=== PATIENT | male | born 1955 | race Caucasian/White ===

== ENCOUNTER 2017-02-03 08:00 | Inpatient (IN) | payer BC ==
[~2017-02-03] VITALS: Ht 175.3 cm; Wt 80.6 kg
--- NOTE | ~2017-02-03 | OR ---
PATIENT'S NAME: LIONEL COLORADO [facility] AGE: 62 Y [address] ROOM: [place] [address] LOCATION: [facility] ADMIT DATE: 02/18/2017 OR/Procedure Report DISCHARGE DATE: FAMILY PHYSICIAN: Isidoro Alicea PA-C ATTENDING PHYSICIAN: ELKE GARNICA SURGEON: Elke Garnica MD FIBERGLASS PRODUCT TESTER: 1. Beni Mcgrath CST/SHARON. 2. Elke Thomson. DATE OF PROCEDURE: 02/18/2017 PRE-OP DIAGNOSIS: Degenerative joint disease right knee. POST-OP DIAGNOSIS: Degenerative joint disease right knee. OPERATION: Right total knee arthroplasty with computer navigation. ANESTHESIA: Spinal anesthesia plus adductor canal block plus periarticular local anesthesia (ropivacaine with epinephrine and Toradol). ESTIMATED BLOOD LOSS: Less than 10 mL. DRAIN: None. SPECIMEN: Synovial fluid for cell count, Gram-stain, and routine cultures. COMPLICATIONS: None. IMPLANT SYSTEM: Jessica Triathlon Size 6 right posterior stabilized femoral component Size 5 universal modular tibial baseplate 11 mm posterior stabilized size 5 X3 tibial polyethylene insert 35 mm Oval X3 patella component (triple pegged). INDICATIONS FOR SURGERY: The patient is a 62-year-old male who presents with advanced right knee degenerative joint disease and associated severely compromised activities of daily living. The patient has decided to proceed with knee replacement after having been thoroughly counseled regarding the associated risks, benefits, and limitations. We have specifically reviewed the risks and implications of infection, deep venous thrombosis, pulmonary embolism, mortality, neurovascular complications, blood transfusion (and associated potential for disease transmission or transfusion reaction), stiffness, instability, mechanical deterioration of the components (due to wear and or loosening), and the potential need for revision. We have also emphasized the importance of active involvement and compliance with post- operative physical therapy as a means of optimizing range of motion and PATIENT'S NAME: LEIGHLIONEL [facility] AGE: 62 Y [address] ROOM: [place] [address] LOCATION: [facility] ADMIT DATE: 02/18/2017 OR/Procedure Report DISCHARGE DATE: FAMILY PHYSICIAN: Isidoro Alicea PA-C ATTENDING PHYSICIAN: ELKE GARNICA functional recovery. Informed consent has been granted. DESCRIPTION OF PROCEDURE: The patient was positioned supine after administration of anesthesia and prophylactic antibiotics. A well-padded pneumatic tourniquet was placed around the right proximal thigh, and the right lower extremity was prepped and draped with vigilant sterile technique. The patient's name as well as the intended operative side and procedure were confirmed with a verbal time-out involving myself, the circulating nurse, the scrub nurse, and the anesthesiologist. Examination under anesthesia demonstrated no active skin lesions or masses. There was a large effusion. There was no erythema. There was no abnormal warmth. Range of motion under anesthesia was from a 5-degree flexion contracture to 115 degrees of flexion. There was no ligamentous insufficiency. The right lower extremity was elevated and exsanguinated with an Esmarch wrap, and the pneumatic tourniquet was inflated to 300mmHg. The knee was approached through a longitudinal midline incision. A medial parapatellar arthrotomy was performed and the patella was everted. Examination of the joint space demonstrated a large amount of orange-colored translucent slightly turbid synovial fluid. 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 Synovial fluid was sent for cell count, culture, and Gram-stain. The Gram-stain and cell count suggested no evidence of infection. An extensive synovectomy was performed. The cruciate ligaments were intact. There was full-thickness loss of articular cartilage involving 90% of the medial femoral condyle and 60% of the medial tibial plateau. In addition, there was a 1 cm wide transverse band of full-thickness articular cartilage loss extending all the way from the medial to the lateral margins of the patella. There was a 3 cm diameter region of high-grade partial thickness articular cartilage loss at the central aspect of the femoral trochlea. There was a moderate-sized osteophyte at the medial femoral condyle. There was a 1 x 2 cm region of full-thickness articular cartilage loss at the lateral tibial plateau. There was a 1 x 3 cm region of full-thickness articular cartilage loss at the medial margin of the lateral femoral condyle. Remnants of the menisci and cruciate ligaments were excised. The Dovetail navigation femoral tracker was pinned in place at the distal aspect of the femoral trochlea. Absence of motion between the femur and the tracking device was confirmed manually and visually. Femoral osseous landmarks were obtained in order to calibrate the computer navigation system. Landmarks included the center of rotation of the ipsilateral hip, the center-point of the distal femur, the femoral AP axis, 57 points on the medial femoral condyle PATIENT'S NAME: LIONEL COLORADO [facility] AGE: 62 Y [address] ROOM: [id number] [place], [place] [address] LOCATION: [facility] ADMIT DATE: 02/18/2017 OR/Procedure Report DISCHARGE DATE: FAMILY PHYSICIAN: Isidoro Alicea PA-C ATTENDING PHYSICIAN: ELKE GARNICA articular surface, and 57 points on the lateral femoral condyle articular surface. The VeriFone computer navigation system was subsequently utilized to position the distal femoral resection block such that the distal femoral resection was performed perfectly perpendicular to the femoral mechanical axis. The distal femoral resection was performed with a Book'n'Bloom Precision oscillating saw. The VeriFone computer navigation tibial tracker was pinned in place at the anterior aspect of the tibial plateau. Absence of motion between the tibia and the tracking device was confirmed manually and visually. Tibial osseous landmarks were obtained in order to calibrate the computer navigation system. Landmarks included the center-point of the tibial plateau, the AP tibial axis, 57 points on the medial tibial plateau articular surface, 57 points on the lateral tibial plateau articular surface, the medial malleolus, and the lateral malleolus. The VeriFone computer navigation system was subsequently utilized to position the proximal tibial resection block such that the proximal tibial resection was performed perfectly perpendicular to the tibial mechanical axis. The proximal tibial resection was performed with a Book'n'Bloom Precision oscillating saw. Perpendicularity of the tibial resection with respect to the tibial shaft axis was reconfirmed by inserting a spacer- block attached to an extramedullary guide amanda. External rotation of the anterior and posterior femoral resections was set parallel to the epicondylar axis and carefully adjusted in order to create a rectangular flexion gap. The box resection was performed with a reciprocating saw. Anterior and posterior chamfer resections were performed with the oscillating saw. Posterior condyle osteophytes were excised with an osteotome. All other osteophytes were excised with a rongeur. Resection of all remnants of the menisci was reconfirmed. Flexion and extension gaps were confirmed to be symmetric and well balanced with a spacer-block technique. The patella resection was performed with an oscillating saw such that the composite thickness of the reconstructed patella was equivalent to the thickness of the little shell tribe patella. Patella tracking was optimal and there was no need for a lateral retinacular release. All trial components were removed and all prepared osseous surfaces were thoroughly irrigated with pulsatile saline lavage and dried prior to cementing all three components in a single stage using Jessica Simplex cement containing pre-mixed tobramycin. All extruded excess cement was removed. The entire joint space was thoroughly inspected and thoroughly irrigated with bacteriostatic pulsatile saline lavage to assure that there was no residual debris of any sort. Final range of motion was from full extension (with no passive hyperextension) PATIENT'S NAME: LIONEL COLORADO [facility] AGE: 62 Y [address] ROOM: [place] [address] LOCATION: [facility] ADMIT DATE: 02/18/2017 OR/Procedure Report DISCHARGE DATE: FAMILY PHYSICIAN: Isidoro Alicea PA-C ATTENDING PHYSICIAN: ELKE GARNICA to 130 degrees of flexion. Patella tracking was reconfirmed to be optimal. There was excellent anteroposterior stability at 90 degrees of flexion. There was less than 1 mm of medial lift-off to valgus stress in full extension. There was less than 1 mm of lateral lift-off to varus stress in full extension. The arthrotomy was closed with multiple simple and [id number]-[id number] interrupted #1 Vicryl. Subcutaneous tissues were thoroughly re-irrigated with bacteriostatic pulsatile saline lavage. Subcutaneous tissues were re- approximated with simple buried interrupted #0 Vicryl sutures. The skin was closed with simple buried interrupted 2-0 Vicryl sutures followed by surgical cat. The dressing consisted of Xeroform gauze, 4x4 gauze, ABD pads and two 6-inch Pro Wraps. There were no intra-operative complications. MD ALECIA ROLLE/ricky /[id number] d: 02/18/172004 t: 02/19/172201, OPERATIVE SUMMARY
--- NOTE | ~2017-02-03 | DS ---
PATIENT'S NAME: LIONEL COLORADO [facility] AGE: 62 Y [address] ROOM: [address] [address] LOCATION: [facility] ADMIT DATE: 02/18/2017 Discharge Summary DISCHARGE DATE: 02/20/2017 FAMILY PHYSICIAN: Isidoro Alicea PA-C ATTENDING PHYSICIAN: Jag Iverson PRIMARY DIAGNOSIS: Degenerative joint disease of the right knee. SECONDARY DIAGNOSIS: Hypercholesterolemia. PROCEDURE PERFORMED: Right total knee arthroplasty with computer navigation. HISTORY: The patient is a 62-year-old male, who presents with advanced right knee degenerative joint disease and associated severely compromised activities of daily living. The patient has decided to proceed with total knee arthroplasty after having been thoroughly counseled regarding the risks, benefits, limitations and alternatives. Please refer to the outpatient clinic notes and admission history and physical for this patient. HOSPITAL COURSE: The patient underwent a right total knee arthroplasty on 02/18/2017 without complications. Spinal anesthesia plus adductor canal block plus periarticular local anesthesia was utilized. The patient received 24 hours of perioperative prophylactic antibiotics and remained hemodynamically stable, neurovascularly intact throughout the entire hospital course. The postoperative prophylactic deep venous thrombosis prophylaxis consisted of Xarelto 10 mg, early mobilization and pneumatic compression devices. Daily physical therapy for gait training, transfer training range of motion and quadriceps isometric exercises were received. The patient progressed well in physical therapy. On the date of discharge, 02/20/2017, the incision at the knee was healing well and showed no signs of infection. DISPOSITION: Home. DISCHARGE ACTIVITY: The patient is to bear weight as tolerated with range of motion and quadriceps isometric exercises as instructed. The operative extremity is to be elevated at least 90% of the day. There is to be sterile 4x4 gauze dressings to the incision daily. Dr. Iverson is to be notified immediately if there is any increased pain, fevers, chills erythema or drainage. DISCHARGE MEDICATIONS: 1. Xarelto 10 mg, take 1 tab p.o. daily for DVT prevention. 2. Dilaudid 2 mg, take 1 to 2 tablets p.o. every 4 hours as needed for pain. 3. Celebrex 200, take 1 tablet p.o. b.i.d. p.r.n. pain. PATIENT'S NAME: LIONEL COLORADO [facility] AGE: 62 Y [address] ROOM: [address] [address] LOCATION: G3 ADMIT DATE: 02/18/2017 Discharge Summary DISCHARGE DATE: 02/20/2017 FAMILY PHYSICIAN: Isidoro Alicea PA-C ATTENDING PHYSICIAN: Jag Iverson FOLLOWUP: Followup appointment is to be with Dr. Iverson on 02/25/2017 for initial postoperative evaluation and x-rays at that time. INDY NORTON FOR MD LYNNE ROLLE/modl /[id number] d: 03/04/17 0331 t: 03/11/17 0809, DISCHARGE SUMMARY
[2017-02-03] MEDS ORDERED: THERA-VITE W/ B1 TAB PO (08:12)
[2017-02-03] MEDS ORDERED: GLUCOSAMINE-CH1 EA37 PO (08:13)
[2017-02-03] MEDS ORDERED: MOBIC7.5 MG PO (08:13)
[2017-02-03] MEDS ORDERED: B COMPLEX1 EACH PO (08:13)
[2017-02-03] MEDS ORDERED: NAPROSYN500 MG PO (08:14)
[2017-02-03] MEDS ORDERED: PRILOSEC20 MG PO (08:14)
[2017-02-03] MEDS ORDERED: ADVIL200 MG PO (08:15)
[2017-02-03] MEDS ORDERED: PRAVACHOL40 MG PO (08:48)
[2017-02-18] MEDS ORDERED: 8 HOUR650 MG PO (08:57)
[2017-02-18 09:02] LABS: BILIRUBIN URINE NEGATIVE (NEGATIVE); BLOOD URINE 10 /UL (NEGATIVE); COLOR URINE YELLOW (YELLOW); GLUCOSE URINE NEGATIVE (NEGATIVE); KETONE URINE 5 mg/dL (NEGATIVE); LEUKOCYTES URINE NEGATIVE /UL (NEGATIVE); NITRITE URINE NEGATIVE (NEGATIVE); PROTEIN URINE 15 mg/dL (NEGATIVE); SPEC GRAVITY URINE 1.025 (1.003-1.035); TURBIDITY URINE CLEAR (CLEAR); UROBILINOGEN URINE NORMAL (NORMAL)
[2017-02-18 09:12] LABS: BACTERIA URINE NEGATIVE (NEGATIVE); EPITHELIAL URINE RARE #/HPF (NEGATIVE); RBC URINE NEGATIVE #/HPF (NEGATIVE); WBC URINE RARE #/HPF (NEGATIVE)
--- NOTE | 2017-02-18 17:18 | NUR ---
Significant Event: Patient arrived from surgery at 1545. Alert and oriented x3. Patient ate full supper at 1630. Patient numb from upper groin down due to spinal, states no pain. Follow up: 3rd Q30min post op vital at approximately 1805.
--- NOTE | 2017-02-19 05:18 | NUR ---
Significant Event: Alert/oriented x3. VSS. CSM WNL. Up in recliner since 2199. No sleep, said he felt ok. 3 voids - 1125 mls. Attempted BM in bathroom, none. Flatus. Dressing C/D/I. EZ wrap, leg on pillow. Next Ancef due 1200. Toradol at 0513; Dilaudid 2 mg po at 2027 and 304. 1 assist ambulation. Follow up:
--- NOTE | 2017-02-19 09:45 | NUR ---
Introduced self/role to patient. He lives alone in [place] but reports lots of helpful neighbors who would assist him if he needed something. He reports have all his needed DME. Did anticipate any barriers to discharge or at home, he plans to discharge tomorrow. Added my name to his marker board, will continue to follow. 0950 Lisa with [facility] called. Patient has inquired with them before surgery about possibly needing their services. I will follow up with patient tomorrow and get back with her. Will see how he does with therapies here and joint class.
--- NOTE | 2017-02-19 17:41 | NUR ---
Significant Event: Patient A/O x3, continent of bladder and bowels. Patient pain controlled with PRN toradol and dilaudid. Patient complaining of stomach pain and constipation, given an enema at approximately 1600. Small BM resulted. Patient states lessened abdominal discomfort after enema. One person assist with gait belt and walker. Patient has not slept since yesterday afternoon. Follow up: Monitor abdominal pain/constipation. Patient wishes to discontinue stool softeners because he believes they cause his stomach pain.
--- NOTE | 2017-02-20 03:36 | NUR ---
Significant Event: Alert/oriented x3. 1 assist ambulation. EZ warp in place, extremity elevated. Teds removed HS. Dilaudid 2 mg PO at 2239 and 0251. Had enema on day shift yesterday, BM after. Has mid abdominal pain since the BM, has gotten more tolerable, Dr Iverson aware. VSS. CSM WNL. Foot pumps on. Dressing C/D/I. Plans to go home today. Follow up:
--- NOTE | 2017-02-20 09:50 | NUR ---
Followed up with patient about HHC call I got yesterday. He said it was all set up. I explained my role in HHC arrangements. I asked what he wanted HHC for? He was sure other then therapies. I did explained that therapies often do start for at least a week. I will contact HHC and see what needs to be done. [address]verson. He didn't think HHC was needed but it the patient thought he had to have it, it would be fine but to have Salomon Kwok talk to patient. Talked to Salomon, he will talk to patient sometime after 1300. [address], [address] Mechanical Engineer, did some followup for me. Talked to Salomon, patient will not have HHC right now, will discuss at followup appointment. Marely called Tenisha [facility] to update.
--- NOTE | 2017-02-20 15:20 | NUR ---
I spoke with Salomon PUTNAM and pt will not have hhc yet and plans on getting it after he see's Dr Iverson at followup appointment. I did tell him then if he will still want it Dr Iverson's nurses will need to set it up then.
[2017-02-20] MEDS ORDERED: COLACE100 MG PO (16:42)
[2017-02-20] MEDS ORDERED: NEURONTIN300 MG PO (16:42)
[2017-02-20] MEDS ORDERED: XARELTO10 MG PO (16:44)
[2017-02-20] MEDS ORDERED: MIRALAX17 GM PO (16:44)
[2017-02-20] MEDS ORDERED: DILAUDID 2MG(HYD2 MG PO (16:45)
[2017-02-20] MEDS ORDERED: CELEBREX200 MG PO (16:49)
--- NOTE | 2017-02-20 17:28 | NUR ---
Discharge instructions reviewed with patient. Reviewed s/s infection, when to call the dr, care of dressings/incision, all medications, josue hose. all belongings sent with patient. Per his request his glasses, hearing aide, wallet and checkbook were placed in the blue bag. He had his phone in his hand. Also sent ez wrap ice home. Spent several minutes going over his insturctions and medications to ensure patient understood. He voiced understanding of all instructions. Encouraged patient to call dr with questions or concerns after discharge.
== END 2017-02-20 17:28 | disposition disaster alternative care site (69) | DRG 470 ==
LOC: G3N 02-18 08:12
PROVIDERS: ADMIT Orthopaedic Surgery
PROC: 8E0YXBZ Computer Assisted Procedure of Lower Extremity (ICD-10-PCS; principal; 2017-02-18)
PROC: 0SRC0J9 Replacement of Right Knee Joint with Synthetic Substitute, Cemented, Open Approach (ICD-10-PCS; principal; 2017-02-18)
DX: M17.11 Unilateral primary osteoarthritis, right knee (principal); E78.5 Hyperlipidemia, unspecified; G89.29 Other chronic pain; M54.9 Dorsalgia, unspecified; R10.9 Unspecified abdominal pain
CPT/HCPCS: C1713; C1776; J0690; J1100; J1170; J1885; J2001; J2250; J2405; J2795; J7120

== ENCOUNTER → 2017-02-06 | Outpatient (CLI) | payer BC ==
[~2017-02-06] MED LIST: 8 HOUR650 MG PO; ADVIL200 MG PO; B COMPLEX1 EACH PO; CELEBREX200 MG PO; COLACE100 MG PO; DILAUDID 2MG(HYD2 MG PO; GLUCOSAMINE-CH1 EA37 PO; MIRALAX17 GM PO; MOBIC7.5 MG PO; NAPROSYN500 MG PO; NEURONTIN300 MG PO; PRAVACHOL40 MG PO; PRILOSEC20 MG PO; THERA-VITE W/ B1 TAB PO; XARELTO10 MG PO
== END | disposition disaster alternative care site (69) ==
LOC: GNJRC 10:45
DX: Z01.812 Encounter for preprocedural laboratory examination (principal); M17.11 Unilateral primary osteoarthritis, right knee

== ENCOUNTER 2017-02-21 04:46 | Inpatient (IN) | payer BC ==
[~2017-02-21] VITALS: Ht 175.3 cm; Wt 84.2 kg
--- NOTE | ~2017-02-21 | HP ---
PATIENT'S NAME: LIONEL [facility] AGE: 62 Y [address] ROOM: [place] [address] LOCATION: [facility] ADMIT DATE: 02/21/2017 History & Physical DISCHARGE DATE: FAMILY PHYSICIAN: Isidoro Alicea PA-C ATTENDING PHYSICIAN: Pau SANDOVAL (Aaron) DATE OF SERVICE: 02/21/2017 CHIEF COMPLAINT: Abdominal pain. HISTORY OF PRESENT ILLNESS: As you all well know, Lionel is a very pleasant 62-year-old gentleman, who had right knee surgery earlier in the week. Postoperatively, he was having some issues with constipation and postoperative ileus and was discharged yesterday. His abdominal pain significantly worsened yesterday and came in from outside facility with complaints of abdominal pain. He was found to have peritonitis and free air under the diaphragm, and was sent here for further management. Here he just got 4 morphines. He is somewhat drowsy, but arousable and appropriate, and complains of severe abdominal pain. He says it started around Friday and has been getting worse ever since that time. It is 10/10 in intensity and stabbing in character. Movement and palpation causes aggravation and nothing alleviates the pain except for some pain meds that helps subside a bit. He has never had a pain of this type before. ALLERGIES: PLEASE SEE HOSPITAL LIST FOR COMPLETE LIST OF ALLERGIES, BUT TO THE BEST OF MY KNOWLEDGE, HE HAS NO KNOWN DRUG ALLERGIES. MEDICATIONS: Please see hospital list for complete list of medications. He tells me he is chronically on cholesterol-lowering medication. PAST MEDICAL HISTORY: Right total knee surgery, history of laparoscopic cholecystectomy, history of hiatal hernia, and history of hypercholesteremia. He denies any cardiac, pulmonary, hepatic, renal disease, or dysfunction. SOCIAL HISTORY: He is single. He is independent. The next of kin and the person who would be making medical decisions on his behalf would be his brother who lives in [place]. He denies tobacco use or abuse. He does drink about 2 to 4 drinks per day, but has not had anything since his surgery, never had withdrawal symptoms. PATIENT'S NAME: LIONEL [facility] AGE: 62 Y [address] ROOM: [place] [id number] LOCATION: [facility] ADMIT DATE: 02/21/2017 History & Physical DISCHARGE DATE: FAMILY PHYSICIAN: Isidoro Alicea PA-C ATTENDING PHYSICIAN: Pau SANDOVAL (Aaron) REVIEW OF SYSTEMS: A full 10-point review of system was discussed with the patient, was negative except for as discussed above. Specifically, he denies any chest pain, shortness of breath, or urinary symptoms. PHYSICAL EXAMINATION: GENERAL: A 62-year-old gentleman, somewhat drowsy but arousable. Alert and oriented x3. HEART: Tachy to 110 and regular. LUNGS: Breathing is nonlabored. ABDOMEN: Distended throughout. Tympanitic and tender to palpation throughout with involuntary guarding throughout, worse in the mid abdomen. No palpable hernias. EXTREMITIES: Bilateral lower extremities are warm. Brisk cap refill. No significant edema. No obvious calf tenderness or swelling. SKIN: No obvious skin lesions or rashes. Right knee incision is well healed. LABORATORY EVALUATION: White count was 19 and creatinine was up to 1.4. Radiology Evaluation: Plain films of the abdomen shows significant air underneath the right hemidiaphragm suggestive of pneumoperitoneum. ASSESSMENT AND PLAN: Lionel is a 62-year-old gentleman, after recent right total knee surgery, presenting with peritonitis and pneumoperitoneum. Differential diagnosis includes perforated ulcer versus a perforated tic versus some sort of perforation from an Isabela's or an ileus are less likely. We will get a CT scan to try to help us delineate where the sources and either way as he has significant peritonitis and hence pneumoperitoneum. We will proceed to the OR afterwards for diagnostic laparoscopy, possible bowel resection, possible Dionte patch repair, possible colostomy, and possible colon resection. I discussed the risks and benefits of this procedure with him. Discussed the significant risks associated including infection, bleeding, damage to surrounding structures, need for further procedures and surgeries, anastomotic leaks, and others. He understands the risks and benefits and wishes to proceed as above. He did tell me that his brother would be the one making medical decisions in the case he was unable to. He has already got a gram of Invanz at the outside hospital. We will go ahead given another liter of fluid, and he already got a single liter at the outside facility and proceed as above. PATIENT'S NAME: LIONEL [facility] AGE: 62 Y [address] ROOM: [place] [address] LOCATION: [facility] ADMIT DATE: 02/21/2017 History & Physical DISCHARGE DATE: FAMILY PHYSICIAN: Isidoro Alicea PA-C ATTENDING PHYSICIAN: Pau SANDOVAL) PAU SANDOVAL MD (JAKE) SL/modl /[id number] CC: Jag Iverson MD D: T: [id number] HISTORY & PHYSICAL
--- NOTE | ~2017-02-21 | OR ---
PATIENT'S NAME: LIONEL COLORADO [facility] AGE: 62 Y [address] ROOM: [id number] [place], [place] [address] LOCATION: [facility] [place] ADMIT DATE: 02/21/2017 OR/Procedure Report DISCHARGE DATE: FAMILY PHYSICIAN: Isidoro Alicea PA-C ATTENDING PHYSICIAN: Pau GONSALVES) SURGEON: Pau Gonsalves MD (Jake) THERMAL CUTTING TRACER MACHINE OPERATOR: DATE OF PROCEDURE: 02/21/2017 PREOPERATIVE DIAGNOSIS: Pneumoperitoneum, suspected perforated peptic ulcer. POSTOPERATIVE DIAGNOSIS: Pneumoperitoneum, was apparently a sealed diverticular perforation. PROCEDURE: Diagnostic laparoscopy. Laparoscopic diverting colostomy. ANESTHESIA: General endotracheal anesthesia. COMPLICATIONS: None. ESTIMATED BLOOD LOSS: 200 mL. DRAINS: 19-Kazakh round drain in the pelvis. INDICATION FOR PROCEDURE: A 62-year-old gentleman, is about five days postoperatively after a right total knee operation presents with a 2-day history of abdominal pain and pneumoperitoneum with CAT scan suspicious for upper GI source of the of the leak, presents for exploration. PQRI: 7 g of Invanz IV was given prior to surgery within the appropriate time frame for acute 24-hour medication. The patient continued to get postoperative antibiotics for the treatment of the peritoneal contamination. SCDs were placed on prior the case. Lovenox 30 mg subcu was given prior to the case. FINDINGS: The stomach, anterior and posterior of duodenal were carefully inspected. No abnormalities were noted. The small bowel was run from ligament of Treitz to ileocecal valve. It was noted to be grossly dilated throughout with a lot of fibrinous stranding on it, but no evidence of injury and was completely viable throughout. The rest of the intraabdominal colon was inspected and was normal, and the sigmoid colon was noted to be acutely inflamed and the small bowel was stuck at the sigmoid suggestive of a sigmoid diverticular perforation at this area, that portion the sigmoid was woody and inflamed. Once all the small bowel loops were taken down off the sigmoid was carefully inspected. No evidence of ongoing leak could be identified. PATIENT'S NAME: LIONEL COLORADO [facility] AGE: 62 Y [address] ROOM: [id number] [place], [place] [address] LOCATION: [facility] [place] ADMIT DATE: 02/21/2017 OR/Procedure Report DISCHARGE DATE: FAMILY PHYSICIAN: Isidoro Alicea PA-C ATTENDING PHYSICIAN: Pau GONSALVES (Aaron) Presumably this is self sealing leak, we considered just leaving drains behind but as the patient had significant generalized peritonitis, he had not managed appropriately, contained this on his own prior to needing surgical intervention. The fact that he has a total knee, we want to be complete and make sure that he does not have an ongoing leak with fecal contamination and minimize the likelihood of that knee getting infected and thus we performed a diverting colostomy. DETAILS OF PROCEDURE: After informed consent was obtained, the patient was brought to the operating room and placed in supine position. Left arm was tucked. All pressure points were padded. General endotracheal anesthesia was induced. A supraumbilical 5-mm incision was made after 0.25% Marcaine introduced into the wound. A 5-mm bladeless trocar introduced in the abdominal cavity under direct vision for the Optiview port by 5-mm 0-degree scope. Pneumoperitoneum was achieved. Abdominal cavity inspected. Additional left lateral and right lateral 5 mm trocars introduced in the same fashion as above under direct visualization from the laparoscope. The small bowel was noted to be dilated throughout. No evidence of succus entericus or feculent contamination could be identified throughout the abdominal cavity. We inspected the anterior wall of the stomach. The stomach was quite pliable and soft. NG tube is in place with the decompression. We inspected the entire anterior gastric wall, followed down to the duodenum. We were unable to see the duodenum clearly because of the scar tissue, the omentum to the old gallbladder fossa this was taken down with Bovie electrocautery. Hemostasis ensured while we exposed the duodenum and mobilized the duodenum out of the retroperitoneum laparoscopically, and duodenum was also soft and without any evidence of bilious staining or evidence of woody changes to the bowel suggestive of a perforation. We then opened up the lesser sac at the gastrocolic ligament taking great care not to injure the blood supply to the stomach and this wound was created and again no bowel staining or evidence of any kind of leak from the posterior gastric wall could be seen. The stomach appeared to be healthy. We then ran the small bowel from ligament of Treitz to ileocecal valve. By doing this, we realized that there was a portion of inflammation was on the left lower quadrant around the sigmoid and these loops of bowel were taken off the woody sigmoid loop. The entire small bowel was run from ligament Treitz to ileocecal valve with the exception of the fact that was stained with fibrinous debris on the on the bowel wall where it was attached to the sigmoid. We were unable to identify any other abnormality or injury to the small bowel. We inspected the rest intraabdominal colon. No abnormalities were noted. It was soft except for at the sigmoid were stuck up to the lateral and anterior abdominal wall into the start of small bowel. Prior to that loops being taken down. No obvious hole could be identified, but area of way changes to the colon was identified consistent with diverticulitis with perforation. Again, no feculent or purulent fluid could be seen but a lot of fibrinous debris. We mobilized the left colon and PATIENT'S NAME: LIONEL COLORADO [facility] AGE: 62 Y [address] ROOM: [place] [address] LOCATION: [facility] [place] ADMIT DATE: 02/21/2017 OR/Procedure Report DISCHARGE DATE: FAMILY PHYSICIAN: Isidoro Alicea PA-C ATTENDING PHYSICIAN: Pau GONSALVES (Aaron) sigmoid off from the lateral abdominal wall. We had made a decision to perform diversion because we did not want to take a chance that he could lose contain of this perforation within the setting of fresh knee. The patient already had been preoperatively marked for possible stoma and we had mobilized off the left lateral wall, we identified the ureter, 1 ampulla methylene blue IV was given. The urine turned green. No evidence of any chyle leak or injury to the ureter which was visualized throughout its entire course and no evidence of injury could be identified. We thought we had seen this sufficiently mobilized the left colon off a left lateral abdominal wall and taking down the white line of Toldt, but we were unable to much to deliver through the ostomy without transecting the colon. An echelon GI stapler was then fired across the distal colon and healthy-appearing bowel above where the a woody induration was, we did not attempt to resect the distal sigmoidectomy done that could be done at a later time, along with the reconnection. Once everything has cooled down with the transection of the colon, we were able to sufficiently mobilized the colon up to the anterior abdominal wall for temperature and proper ostomy. We did have to place a 12 mm infraumbilical and left lower quadrant 5-mm trocars to achieve this dissection. All the ostomy site was then opened with a circular disc of skin and fatty tissue was excised and a cruciate incision was made in the anterior rectus fascia. The muscle was split and a cruciate incision was made in the posterior fascia and the distal colon was then brought out through the ostomy defect taking great care to ensure the appropriate orientation of the bowel. The excess descending colon was resected and sent off as specimen. This was not the portion that was inflamed, that portion still remains intra-abdominally and will not be resected during this operation as we did not want to perform any undue dissection at this time. The 12 mm trocar site was closed with 0 Vicryl suture on a UR6 needle. All the wounds were closed with 4-0 Monocryl subcuticular suture. The drain was placed in the right lower quadrant drain site and placed in the pelvis next to the woody induration of the remaining sigmoid colon and secured to the skin with 3-0 nylon. Once all the wounds were closed, Dermabond was placed and sterile dressing was placed on that. We then matured the ostomy in the usual Eugenia fashion with interrupted 3-0 Vicryl sutures. An ostomy appliance was placed. I digitalized the stoma to make sure that was patent open throughout and below the fascia. The patient tolerated the procedure well and was extubated and taken back to Recovery in stable condition. MD PEDRO DIAZ (JAKE)/bebel PATIENT'S NAME: LIONEL COLORADO [facility] AGE: 62 Y [address] ROOM: [place] [address] LOCATION: [facility] [place] ADMIT DATE: 02/21/2017 OR/Procedure Report DISCHARGE DATE: FAMILY PHYSICIAN: Isidoro Alicea PA-C ATTENDING PHYSICIAN: Pau GONSALVES) /[id number] d: t: 02/21/171952, OPERATIVE SUMMARY
--- NOTE | ~2017-02-21 | CON ---
PATIENT'S NAME: LIONEL COLORADO [facility] AGE: 62 Y [address] ROOM: [place] [address] LOCATION: [facility] [place] ADMIT DATE: 02/21/2017 Consultation DISCHARGE DATE: FAMILY PHYSICIAN: Isidoro Alicea PA-C ATTENDING PHYSICIAN: Pau GONSALVES (Aaron) DATE OF CONSULTATION: 02/21/2017 ORTHOPEDIC CONSULTATION CHIEF COMPLAINT/REASON FOR CONSULTATION: Abdominal pain. HISTORY OF PRESENT ILLNESS: Mr. Colorado is a pleasant 62-year-old gentleman, known to my partner, Dr. Iverson, who recently underwent a right total knee arthroplasty on Friday02/18/2017. Yesterday, the patient developed acute abdominal pain. On postoperative day 1 after his surgery, he requested an enema. He was seen and evaluated by Dr. Gonsalves and re-admitted for acute peritonitis. The patient was brought to the operating room by Dr. Gonsalves and a diagnostic laparoscopy revealed evidence of a ruptured diverticula. A diverting colostomy was undertaken. I am seeing and evaluating the patient in PACU in the recovery room. The patient reports no pain in his knee. He reports mostly abdominal pain. REVIEW OF SYSTEMS: Otherwise as mentioned above. The rest were negative. ALLERGIES: NO KNOWN DRUG ALLERGIES. MEDICATIONS: Currently being reconciled. PAST MEDICAL HISTORY: Includes: 1. Right total knee arthroplasty on 02/18/2017. 2. Osteoarthritis. 3. History of gallstones. 4. Hernia. 5. Hypercholesterolemia. PAST SURGICAL HISTORY: Includes: 1. Right total knee arthroplasty by Dr. Iverson on 02/18/2017. PATIENT'S NAME: LIONEL COLORADO [facility] AGE: 62 Y [address] ROOM: [place] [address] LOCATION: [facility] [place] ADMIT DATE: 02/21/2017 Consultation DISCHARGE DATE: FAMILY PHYSICIAN: Isidoro Alicea PA-C ATTENDING PHYSICIAN: Pau GONSALVES) 2. Previous history of hernia repair. 3. Laparoscopic cholecystectomy. SOCIAL HISTORY: The patient is single and independent. He denies any tobacco or illicit drug use. He consumes alcohol socially. PHYSICAL EXAMINATION: VITAL SIGNS: Temperature 97.9, respirations 16, heart rate of 113, and blood pressure 147/91. GENERAL: In no acute distress. Awake, alert, and oriented x3. He is able to follow commands at the bedside. HEENT: Normocephalic and atraumatic. Extraocular movements are intact. PERRLA. Moist mucous membranes. Oropharyngeal airway is clear. NECK: Supple. Trachea is in midline. CARDIOVASCULAR: Regular rate and rhythm. CHEST: Normal symmetric respirations observed bilaterally. ABDOMEN: Soft, nontender, and nondistended. Currently, there is an ostomy in place. PELVIS: Stable. MUSCULOSKELETAL: Right lower extremity; focal examination of the patient's right lower extremity reveals it is grossly neurologically intact distally. Compartments of the thigh, leg, and foot are soft. There are palpable dorsalis pedal and posterior tibial pulses. There is a healing surgical incision over the anterior aspect of the knee with surgical cat in place. There is no erythema, warmth, or drainage. Small knee joint effusion noted. The patient is able to dorsiflex and plantarflex the ankle without difficulty. He has good strength at the ankle. He reports no pain at the knee. LABORATORY DATA: His white count was 19, and creatinine was up to 1.4. IMPRESSION: 1. Acute peritonitis in the setting of diverticulosis with ruptured diverticula warranting urgent laparoscopy and diverting colostomy. 2. Right total knee arthroplasty performed by Dr. Iverson on 02/18/2017. PLAN: I had a long discussion with Dr. Gonsalves regarding the patient. I also spoke to the patient in the PACU after his laparoscopy. The patient's knee appears to be comfortable. Dr. Gonsalves believe that he had achieved good intraoperative result after performing a laparoscopy and diverting colostomy. The patient will be on antibiotics for at least [address] Gonsalves suspects the patient may be in the hospital anywhere from 7 to 10 days. From an orthopedic standpoint, provided that Dr. Gonsalves is okay with the patient ambulating, I would recommend Physical Therapy and Occupational Therapy be consulted for early ambulation and prevention of deconditioning. The patient will be PATIENT'S NAME: LIONEL COLORADO [facility] AGE: 62 Y [address] ROOM: [place] [address] LOCATION: [facility] [place] ADMIT DATE: 02/21/2017 Consultation DISCHARGE DATE: FAMILY PHYSICIAN: Isidoro Alicea PA-C ATTENDING PHYSICIAN: Pau GONSALVES (Aaron) weightbearing as tolerated on the right lower extremity. We will keep his surgical incision clean, dry, and intact. I will continue to monitor the patient closely in the postoperative period. BETITO C MD JACK WALLACE/ricky /[id number] d: 02/21/172001 t: 02/22/17 1104, CONSULTATION REPORT
--- NOTE | ~2017-02-21 | DS ---
PATIENT'S NAME: LIONEL COLORADO [facility] AGE: 62 Y [address] ROOM: [address] [address] [place] [facility] [place]: 02/21/2017 Discharge Summary DISCHARGE DATE: 02/28/2017 FAMILY PHYSICIAN: Isidoro Alicea PA-C ATTENDING PHYSICIAN: Pau GONSALVES (Aaron) DIAGNOSES: 1. Pneumoperitoneum from an apparently sealed diverticular perforation. 2. Recent right knee replacement done February 18, 2017. 3. A 12-beat run of ventricular tachycardia. 4. Postoperative sinus tachycardia. SUMMARY: Lionel Colorado is a 62-year-old gentleman, who underwent a right total knee arthroplasty on February 18, [address]vers[address]. The patient was discharged home on February 21. The patient states that he has had abdominal pain prior to discharge, but no abnormalities were found. Upon arriving home, the patient developed severe abdominal pain and returned to the [facility] for evaluation. The patient was found to have pneumoperitoneum and was transferred to [facility] for further evaluation and treatment. The patient was evaluated by Dr. Gonsalves, the [facility] General Surgeon, who did obtain a CT scan, which actually showed changes suspicious for an upper GI source of the leak. Dr. Gonsalves recommended surgical exploration. He proceeded with diagnostic laparoscopy. He found an area of inflammatory change in the sigmoid colon and proceeded with a laparoscopic diverting colostomy. Please see his operative note for specifics. Postoperatively, an NG tube was placed to low continuous suction, Reese to dependent drainage. Pulmonary toiletry was encouraged. Lovenox was ordered for DVT prophylaxis. The patient continued on Invanz 1 g IV daily. Dilaudid JANITOR CLEANER was ordered with no basal rate and a 0.2 mg bolus every 10 minutes. On postop day 1, the patient was feeling much better. Vital signs were stable. He was afebrile. White blood cell count was normal. PT and OT were ordered for evaluation. On postop day two, a PICC line was ordered with anticipation of two weeks of IV antibiotics due to his recent total knee replacement along with the perforation of the colon. On postop day three, the patient had no flatus. He was voiding well. Vital signs were stable other than a heart rate of 116. White blood cell count is 5.2. Wound ostomy continence nurse was consulted for colostomy teaching. JANITOR CLEANER was discontinued and p.r.n. Dilaudid was ordered. The patient was placed on telemetry due to the tachycardia. NG output was 650 mL. On February 25, the colostomy was producing gas and stool. Vital signs again were stable. The patient's NG tube was clamped and removed later in the day. He was started on clear liquids. On postop day 5, the patient tolerated the clear liquids and was advanced to a full liquid diet. [place] and Tylenol were added for pain control. On the nerve specialist of postop day six, the patient had a 12-beat run of V-tach, but was asymptomatic. White blood cell count was 13.4, hemoglobin 10.0. Electrolytes were all stable. TSH was 1.750. Stool was PATIENT'S NAME: LIONEL COLORADO [facility] AGE: 62 Y [address] ROOM: [place] [address] [place] [facility] [place]: 02/21/2017 Discharge Summary DISCHARGE DATE: 02/28/2017 FAMILY PHYSICIAN: Isidoro Alicea PA-C ATTENDING PHYSICIAN: Pau GONSALVES (Aaron) checked for C. diff, which was negative. He was advanced to a surgical soft diet. Tentative arrangements have been made for the patient to discharge to the [facility] bed tomorrow. Discharge instructions include following up with both Dr. Cronin and Dr. Iverson in 3 weeks. We will try to coordinate those appointments if possible. He may continue on a regular diet. He is weightbearing as tolerated with TKA protocol, range of motion goal is 120 degrees, flexion in six weeks, postop range of motion and clot, ice those have been ordered. Continuous PT and OT. He may shower and allow the Steri-Strips to fall off the knee and the abdomen allow them to fall off. Continue with colostomy teaching. The PICC line may be discontinued after antibiotics are completed. DISCHARGE MEDICATIONS: Include: 1. Invanz 1 g IV daily and stopping on March 07, 2017. 2. Continue Prilosec 20 mg p.o. at bedtime. 3. Tylenol 650 mg p.o. every 4 hours as needed for pain. 4. Brownsville 5/325 1 to 2 tabs every 4 hours as needed for pain. 5. Multivitamin one tablet p.o. daily. 6. Glucosamine chondroitin 1 tablet p.o. daily. 7. B complex one tablet p.o. daily. 8. Pravachol 40 mg p.o. at bedtime. 9. Xarelto 10 mg p.o. daily x5 days for DVT prophylaxis. 10. Celebrex 200 mg p.o. twice daily, dispensing 14 with no refills. 11. A prescription was written for [place] 5/325 one to two p.o. q.4 hours p.r.n. pain dispensing 30 with no refills. Outpatient physical therapy order sheet has been written for once the patient is dismissed from the [facility] swing bed. Also, prescription for ostomy supplies has been written for. For specifics on day-to-day care, please refer to the hospital chart. RAIN PAREDES PA-C FOR MD SAMANTHA RALPH/ricky /[id number] d: 02/28/17 0442 t: 03/14/17 0609, DISCHARGE SUMMARY
--- NOTE | 2017-02-21 18:51 | NUR ---
AAOX3. Cooperative with cares. Hourly PO VS left to do on the hr starting @1900. Hypertensive, tachy - gave scheduled Metoprolol IV. Titrated to 1liter O2. NG to R) nare to LCS w/125 out. Reese draining green urine w/400ml out after returning from Sx. New Ostomy to LLQ pink w/scant serosanguinous out. Abdominal lap sites x4 glued. OSCAR to RLQ w/25ml of sanguinous output and dressing intact. Bilat PIVs w/LH s/l'd and RFA infusing @125/hr. CLAIMS ADJUSTER SUPERVISOR Dilaudid @0.2 demand only w/10min LO. R)knee replacement 02/18 (3 days ago). Stapled w/Mepilex and transparent on top; DO NOT TOUCH unless orders from Dr Iverson's office. Total knee replacement precautions and activity per 3N order set. VSS hypertensive and tachy. Gave scheduled Metoprolol IV; also received additional BP med orders. O2 titrated to 1liter. May give PRN PO BP med w/NG clamped for 1hr.
--- NOTE | 2017-02-22 04:57 | NUR ---
Pt. alert and oriented - at times groggy. 2L O2. PORCELAIN ENAMEL LABORER pump with 0.2mg deman, 10 min lockout, 4.8max. Pt. pushing button frequently. NG to continuous suction. OSCAR Drain to R) lower abdomen with 55mL. Lap site x4 with glue. Reese draining green urine. IV in L) Hand - saline locked. IV in R) Hand with fluids. IV Lopressor changed to every 4 hours instead of every 6 hours. New ostomy placed as well with drips of output. NPO with ice chips given by nurse. R) knee done 3 days ago with dressing on it. Order to have ice to R) knee. Knee precautions. IS teaching needs reinforced. Pleasant and cooperative with cares.
[2017-02-22 05:34] LABS: HEMATOCRIT 31.6 % (37.0-53.0); HEMOGLOBIN 9.9 g/dL (11.0-16.0); MCH 29.6 pg (27.0-34.0); MCHC 31.3 gm/dL (32.0-36.5); MCV 94.6 fl (83.0-98.0); MPV 9.2 fl (9.4-12.4); PLATELET COUNT 328 K/uL (150-450); RBC 3.34 M/uL (3.50-5.50); RDW-CV 13.1 % (11.9-14.6); WBC 5.4 K/uL (4.0-11.0)
[2017-02-22 05:50] LABS: ANION GAP 8.6 (10.0-19.0); BLOOD UREA NITROGEN 15 mg/dL (6-24); CALCIUM 8.3 mg/dL (8.5-10.5); CHLORIDE 106 mMol/L (96-110); CO2 30 mMol/L (22-32); CREATININE 1.1 mg/dL (0.6-1.3); ESTIMATED GFR (MDRD EQUATION) > 60; POTASSIUM 4.6 mMol/L (3.7-5.1); SODIUM 140 mMol/L (135-145)
[2017-02-22 06:28] LABS: ABSOLUTE NEUTROPHIL CT (ANC) 4.2 K/uL (1.4-9.0); BANDED NEUTROPHIL # 0.9 K/uL (0.0-0.1); BANDED NEUTROPHILS % 16 %; LYMPHOCYTE # 0.8 K/uL (0.8-4.0); LYMPHOCYTE % 14 %; MONOCYTE # 0.4 K/uL (0.0-1.0); SEGMENTED NEUTROPHIL # 3.4 K/uL (1.4-9.0); SEGMENTED NEUTROPHIL % 62 %
--- NOTE | 2017-02-22 17:48 | NUR ---
Patient is alert and oriented, tachycardic, takes lopressor IV q4 hours. On 1L O2 per NC. Dilaudid BOBBIN WASHER demand dose only at 0.2mcg with a 10 minute lockout. 4 lap sites with skin glue, ostomy has scant amount of fluid draining. OSCAR to RLQ had 30ml out. Reese is draining green urine. NG to R) nare had 210ml out. Education given about ice chips to output ratio. Had 19 deliveries with 23 demands of the BOBBIN WASHER. R) total knee done 3 days ago, mepilex dressing is CDI, ice applied to knee at all times, unless he can't sleep with it. NPO with ice chips. L) hand IV is saline locked, R) hand IV infusing fluids with BOBBIN WASHER. Is up in the chair, activity as tolerated, weight bearing as tolerated to R) leg.
[2017-02-23 06:04] LABS: BASOPHIL % 0.3 %; EOSINOPHIL # 0.2 K/uL (0.0-0.5); EOSINOPHIL % 3.4 %; HEMATOCRIT 29.5 % (37.0-53.0); HEMOGLOBIN 9.6 g/dL (11.0-16.0); IMMATURE GRANULOCYTE % 0.7 %; LYMPHOCYTE # 0.5 K/uL (0.8-4.0); MCH 30.2 pg (27.0-34.0); MCHC 32.5 gm/dL (32.0-36.5); MCV 92.8 fl (83.0-98.0); MPV 9.2 fl (9.4-12.4); NEUTROPHIL # (ANC) 4.1 K/uL (1.4-9.0); NEUTROPHIL % 69.6 %; NRBC % 0 /100WBC (0-0.00); PLATELET COUNT 349 K/uL (150-450); RBC 3.18 M/uL (3.50-5.50); WBC 5.9 K/uL (4.0-11.0)
[2017-02-23 06:14] LABS: BLOOD UREA NITROGEN 13 mg/dL (6-24); CALCIUM 8.2 mg/dL (8.5-10.5); CHLORIDE 100 mMol/L (96-110); CO2 27 mMol/L (22-32); CREATININE 0.7 mg/dL (0.6-1.3); ESTIMATED GFR (MDRD EQUATION) > 60; SODIUM 134 mMol/L (135-145)
--- NOTE | 2017-02-23 06:42 | NUR ---
Significant Event: A/O X3 AND COOPERATIVE WITH CARES. C/O ABDOMINAL PAIN RATING AT 4, ON DILAUDID PARTS FACILITATOR DEMAND ONLY. HAD TOTAL OF 5.35MG IN WITH 34 DEMANDS AND 26 GIVEN. LAP SITES X4 GLUED. COLOSTOMY HEALTHY, VERY SMALL AMOUNT OF LIQUID DRAINAGE; NO FLATUS OR STOOL YET. BOWEL SOUNDS RARE. NG TO R) NARE SKIN INTACT AND TO LOW CONTINUOUS SUCTION WITH 350ML OUT. NO NAUSEA NOTED. MAY HAVE ICE CHIPS, ENCOURAGED TO NOT OVER DO ICE CHIPS. OSCAR TO RLQ, HAD 20ML OUT. IV TO R) FA WITH IV FLUIDS INFUSING WITHOUT DIFFICULTY, SALINE LOCK TO L) HAND. KAMILLA DC'D AT 0620. RECENT R) TOTAL KNEE REPLACEMENT WITH MEPILEX DRESSING C/D/I. PATIENT VERY HARD TO GET COMFORTABLE IN CHAIR, MOVED TO RECLINER LATE IN SHIFT AND CURRENTLY RESTING. Follow up:
--- NOTE | 2017-02-23 17:13 | NUR ---
Patient is alert and oriented, VSS, on 1L O2 now, was on room air but will drop into the upper 80's when sleeping. Dilaudid TANKAGE SUPERVISOR is demand dose only at 0.2mcg with a 10 minute lockout. IV to L) hand is saline locked, R) forearm/hand infusing fluids at 100ml/hr. NG to R) nare had 450 out but he had about 300ml in of ice chips. OSCAR only had 10ml out and colostomy had 15ml out of fluid. Reese was pulled this am with 1375ml out for the day. Lopressor given scheduled Q4 hours for tachycardia. R) total knee was performed on the so patient has knee precautions, mepilex dressing is clean, dry and intact. 4 lap sites with skin glue. Education given again about ice chips and NG output.
[2017-02-24 06:07] LABS: HEMATOCRIT 31.5 % (37.0-53.0); HEMOGLOBIN 10.4 g/dL (11.0-16.0); MCH 30.2 pg (27.0-34.0); MCV 91.6 fl (83.0-98.0); MPV 8.9 fl (9.4-12.4); PLATELET COUNT 377 K/uL (150-450); RBC 3.44 M/uL (3.50-5.50); RDW-CV 12.8 % (11.9-14.6); WBC 5.2 K/uL (4.0-11.0)
[2017-02-24 06:22] LABS: ANION GAP 8.1 (10.0-19.0); BLOOD UREA NITROGEN 15 mg/dL (6-24); CALCIUM 8.7 mg/dL (8.5-10.5); CHLORIDE 97 mMol/L (96-110); CO2 30 mMol/L (22-32); ESTIMATED GFR (MDRD EQUATION) > 60; POTASSIUM 4.1 mMol/L (3.7-5.1); SODIUM 131 mMol/L (135-145)
[2017-02-24 06:43] LABS: ABSOLUTE NEUTROPHIL CT (ANC) 3.5 K/uL (1.4-9.0); BANDED NEUTROPHIL # 0.5 K/uL (0.0-0.1); BANDED NEUTROPHILS % 9 %; LYMPHOCYTE % 20 %; MONOCYTE # 0.5 K/uL (0.0-1.0); SEGMENTED NEUTROPHIL % 58 %
--- NOTE | 2017-02-24 06:55 | NUR ---
Significant Event: A/O X3 AND COOPERATIVE WITH CARES. C/O ABDOMINAL PAIN RATING AT 2-4, ON DILAUDID CAR DROPPER DEMAND ON WITH 3.6MG IN WITH 28 DEMANDS AND 18 DELIVERS. LAP SITES X4 ARE GLUED. COLOSTOMY HEALTHY WITH MINIMAL DRAINAGE OUTPUT. NO FLATUS. BOWEL SOUNDS ARE TYMPANIC THROUGHOUT. NG TO R) NARE HOOKED TO LOW CONTINUOUS SUCTION HAD 200ML OUT. OSCAR TO RLQ HAD 10ML SEROUS DRAINAGE. IV TO R) FA FLUSHES WELL AND IV FLUIDS INFUSING WITHOUT DIFFICULTY, SALINE LOCK TO L) HAND. CONTINUES TO BE ON 1L/NC TO KEEP SATS IN 90'S, DESATS OCCASIONALY. RECENT TOTAL KNEE REPLACEMENT TO R) KNEE, MEPLIEX DRESSING IN PLACE LEAVE IN PLACE, DO NOT REMOVE. MAY HAVE ICE TO KNEE BUT MAKE SURE THAT PATIENT DOES NOT FALL ASLEEP WITH ICE ON KNEE. SLEPT WELL WHEN FOUND COMFORTABLE POSITION FOR PATIENT. WILL GET PICC TODAY. Follow up:
--- NOTE | 2017-02-24 16:51 | NUR ---
Significant Event:A/O x 3, cooperative with cares. VSS. Pain rated between 3-7/10. Dilaudid MAINTENANCE MACHINIST DC'd, order now for IVP dilaudid q 1 hour. Has SL IV to R) forearm but PICC being placed for antibiotics. Stoma is beefy red, with bloody drainage. Lap sites x 4 glued and approximated. Mepilex dressing to R) knee, ecchymosis around dressing. UP with PT and ambulated in alejandro, but was very worn out this afternoon. IVP lopressor q 4 hours for increased heart rate. Telemetry. OSCAR to R) side draining serosanguinous dressing. 1 assist with walker/gait belt. Ice chips and otherwise NPO. Follow up: Continue to keep pain controlled and encourage ambulation.
--- NOTE | 2017-02-25 04:18 | NUR ---
Pt. alert and oriented. 1 assist with walker. VSS. IV loperessor q 4hours. HEAD BAKER dc'd. RA - sats good. Up in chair today. IV in R) arm - fluids running at 100ml/hour. PICC placed in R) upper arm. NG to R) nare with 250 output. NPO with ice chips. Replaced multiple bandaids for NG. OSCAR drain R) lower abdomen with 10ml output. Ostomy with 250ml and flatus this shift. Stoma is beefy red. R) knee with mepilex dressing from replacement. Drsg dry and intact. ordered ice every hour to knee. Lap sites x4 with glue. Last dilaudid given at 2300. Last zofran given at 2014. Telemetry - no calls. Pt. cooperative with cares.
[2017-02-25 05:18] LABS: ALBUMIN 2.3 gm/dL (3.5-5.0); ANION GAP 10.6 (10.0-19.0); BLOOD UREA NITROGEN 18 mg/dL (6-24); CALCIUM 8.3 mg/dL (8.5-10.5); CHLORIDE 97 mMol/L (96-110); CO2 29 mMol/L (22-32); ESTIMATED GFR (MDRD EQUATION) > 60; PHOSPHORUS 3.1 mg/dL (2.5-4.9); POTASSIUM 3.6 mMol/L (3.7-5.1); SODIUM 133 mMol/L (135-145)
--- NOTE | 2017-02-25 12:40 | NUR ---
Received consult to work on transfer to [facility] for or Friday with IV antibx. Called Marisela Hutchinson, PA and pt will need IV Invanz 1 gram once a day for total of 2 weeks, wrote order clarification. Talked with patient, lives in [place] and sees primary care provider in [place]. Asked if he wanted to go to [facility] and he said he would prefer [place] to be closer to home. Called and talked with Kristal, [facility] coordinator at [facility], faxed her referral information. She will see if she can get one of her docs to accept, sometimes don't like to if not a patient there, she will let me know.
--- NOTE | 2017-02-25 15:41 | NUR ---
Significant Event: Alert and oriented X 3. Room air. SBP 110's and 120's. HR 100's. No residual before pulling NG tube. NG from right nostril pulled at 1210. Clear liquid diet. Handling water and ice chips well. PICC to upper right arm flushes well with good blood return. Fluids infusing at 100 ml/hr. Peripheral IV to right forearm, flushes well, no blood return. Colostomy with 615 ml out this shift. OSCAR to abdomen with 30 ml out this shift, old shadow drainage on dressing. NG had a total of 145 ml out this shift. Up with 1 assist gait belt and walker. Right knee has mepilex dressing for a total knee. Ice to be replaced ever 2 hours. Dilaudid last given at 1152 for pain. Pleasant and cooperative with cares. Follow up:
--- NOTE | 2017-02-25 15:53 | NUR ---
Called pt insurance to check benefits for SNF. As long as local [employer] in network provider will require precertification but 30 days per calendar year are covered at 100% no deductible no copay no deductible no out of pocket and no lifetime max. DANA Roberts [facility] had called me also and left message to check how ostomy supplies are covered and it sounds like he has a good benefit too for those, she could not tell me specifically because you have to tell them the billing code (and I don't have billing codes) and some supplies are subject to precert, without knowing the billing code can't tell me if ostomy supplies require precert, but in general, as long as you are using an in network provider (local [employer] of [place] in network) supplies are also covered at 100% no deductible or copay or annual max. Called Alejandra back and let her know that, she will check and see if pt pharmacy is in network and tell patient.
--- NOTE | 2017-02-26 04:24 | NUR ---
Pt. alert and oriented. RA. VSS - tachy. IV lopressor every 4 hours. NG out yesterday - clear liquid diet. PICC to R) upper arm - fluids at 100ml/hour. IV R) Forearm - saline locked. Colostomy with 500ml output. OSCAR to R) lower abdomen with 50 ml. output. R) knee has mepilex dressing with ice every 1 hour. 1 assist with walker and gaitbelt. Did not given any PRN pain meds or nausea medication. Lap site x4 with glue. Pleasant and cooperative with all cares.
--- NOTE | 2017-02-26 12:56 | NUR ---
Talked with patient and let him know his insurance benefits in network for swingbed and for ostomy supplies. Alejandra with [facility] checking with pt pharmacy to see if they are in network as thats where he wants to get his supplies from. I called [facility] and talked with [place], she said they are in network with [facility] but for ostomy supplies they refer everyone to [facility] in [place]. Called [facility] in [place], , they are in network with [facility] and do order ostomy supplies for patients. Left message for Alejandra RN [facility] with that information. Let pt know I am working to see if pt can go to [facility], if for some reason they can't accept would look at [facility], he is okay with that. He says he has tried to get appt to see Dr Hernandez or Kel in [place] prior to his joint replacement surgery but couldn't get in for 3 months. Would like to change to physician in [place]. I called Kristal at [facility] and let her know that and that patient said he saw Dr Hernandez in the ER prior to coming back in here with [facility]. She will talk with Dr Hernandez and his partners to see if they can accept and let me know and then start precert with pt insurance, if they can accept. If they can't will start referral in [place].
--- NOTE | 2017-02-26 13:39 | NUR ---
Significant Event: Pt denies pain. PICC to left arm saline lock'd. Up in reclienr most of day, up with 1 assist. OSCAR to right lower abd draining mod amt of bloody drainage, incisions approximated with skin glue. Colostomy to left lower abd d/i, large amt of liquid sool this shift. Full liquids. Tele on, no calls. Follow up:
--- NOTE | 2017-02-26 16:03 | NUR ---
Received call back from Kristal at [facility]. Dr Begum will be accepting physician. They will work on precert for Friday for patient to come to them if ready for dc. She will let morning caregiver know tomorrow when precert complete. Talked with patient and let him know, and he is agreeable to plan. Told him to plan to have someone come get him Friday late morning or right after lunch. Told him will likely have to get supplies through [facility] in [place]. ANGELIQUE was checking on his pharmacy in [place] as well.
--- NOTE | 2017-02-26 16:05 | NUR ---
A - PT SCREENED D/T LOS. COLOSTOMY PLACED 02/21. NG DISCONTINUED 02/25. HT: 175.26 CM, WT: 185#, BMI: 27.3, IBW: 72.7 KG, %IBW: 116% LABS: NA 133, K+ 3.6, GLU 122, ALB 2.3. MEDS: ZOFRAN. DIET: WAS NPO/CLEAR LIQUID X3 DAYS. DIET ADVANCED TO FL TODAY, TOLERATING OKAY BUT SOME NAUSEA. EST NEEDS: 4027-8365 KCAL (25-30 KCAL/KG IBW), 73-88 GRAMS PROTEIN (1-1.2 GRAMS/KG IBW). D - INADEQUATE ORAL INTAKE RELATED TO ALTERED GI FUNCTION AND RECENT GI SURGERY EVIDENCED BY PO 25-75% X2 MEALS. I - PT AGREED TO TRY ENSURE ENLIVE BID. M/E - GOAL: PT WILL BE ABLE TO TOLERATE >50% OF MEALS AND AT LEAST ONE ORAL SUPPLEMENT PER DAY IN 3-5 DAYS.
--- NOTE | 2017-02-27 03:35 | NUR ---
Pt. alert and oriented. RA. VSS. IV lopressor dc'd. NO PRN pain meds given this shift. PICC to R) arm - saline locked. Up in chair then in bed and back in chair most of night. OSCAR to R) lower abd with 30ml output. R) mepilex dressing to knee with ice changed every hour per MD. 4 lap sites with glue. Ostomy to L) lower abd with green, liquid out. Full liquid diet. Tele - no calls. Staple removal kit at bedside for MD in AM. Cooperative and pleasant with all cares.
[2017-02-27 06:22] LABS: HEMATOCRIT 29.9 % (37.0-53.0); MCH 30.6 pg (27.0-34.0); MCHC 33.4 gm/dL (32.0-36.5); MCV 91.4 fl (83.0-98.0); MPV 9.3 fl (9.4-12.4); RBC 3.27 M/uL (3.50-5.50); RDW-CV 13.6 % (11.9-14.6); WBC 13.4 K/uL (4.0-11.0)
[2017-02-27 06:26] LABS: PLATELET COUNT 499 K/uL (150-450)
[2017-02-27 06:45] LABS: ALBUMIN 2.4 gm/dL (3.5-5.0); ANION GAP 8.7 (10.0-19.0); BLOOD UREA NITROGEN 18 mg/dL (6-24); CALCIUM 8.2 mg/dL (8.5-10.5); CHLORIDE 102 mMol/L (96-110); CO2 29 mMol/L (22-32); ESTIMATED GFR (MDRD EQUATION) > 60; PHOSPHORUS 3.1 mg/dL (2.5-4.9); POTASSIUM 3.7 mMol/L (3.7-5.1); SODIUM 136 mMol/L (135-145)
[2017-02-27 07:08] LABS: ABSOLUTE NEUTROPHIL CT (ANC) 10.6 K/uL (1.4-9.0); BANDED NEUTROPHIL # 1.6 K/uL (0.0-0.1); BANDED NEUTROPHILS % 12 %; LYMPHOCYTE # 1.5 K/uL (0.8-4.0); LYMPHOCYTE % 11 %; MONOCYTE # 1.1 K/uL (0.0-1.0); SEGMENTED NEUTROPHIL % 67 %
--- NOTE | 2017-02-27 12:30 | NUR ---
SPOKE TO SANDIE FITCH AT THE [facility]. SHE REPORTS THAT THEY WILL ACCEPT PATIENT TOMORROW AND THAT DR. SMITH WILL BE THE ACCEPTING PHYSICIAN. HIS CONTACT NUMBRE IS [phone]. I NOTIFIED SOFIYA PUTNAM WITH DR. YUSUF AND UPDTED HER I ALSO GAVE HER THE CONTACT NUMBER FOR DR. SMITH. NOTIFIED DR. GARNICA AND UPDATED HIM OF THE DISCHARGE TIME WELL. SPOKE TO LIONEL AND UPDATED HIM THAT HE WILL BE GOING TO [facility] TOMORR[facility]. HE IS GOING TO CONTACT A FRIEND TO COME AND GET HIM,HIS GOAL IS TO LEAVE HERE BY NOON TOMORROW. HE WILL LET ME KNOW WHAT TIME HIS FRIEND WILL BE HERE TO GET HIM.
--- NOTE | 2017-02-27 14:22 | NUR ---
Significant Event: Pt denies need for pain meds, has been encouraged to take them when he is hurting. Up with 1 assist. OSCAR draining sm amt of bloody drainage. Ostomy to right lower abd draining mod amt of liquid stool, stool for cdiff sent and was negative. Advanced to surgical soft diet. Up in recliner most of the day. PICC to right arm. Dc to swingbed tomorrow. Follow up:
--- NOTE | 2017-02-27 17:00 | NUR ---
SPOKE TO LIONEL HE INFORMS ME THAT HIS FRIEND WILL BE HERE AT 1100 TO GET HIM. PACKET STARTED. ORDERS PLACED ON THE CHART.
--- NOTE | 2017-02-28 04:10 | NUR ---
Significant Event: Pt alert and oriented. Up in chair beginning of shift. SBA. OSCAR removed early in shift by Marisela Hutchinson. Stool in ostomy starting to form. Explained how to empty, pt is not emptying own ostomy at this time. No c/o pain. Tolerating regular diet. Friend will be here around 1100, pt plans to discharge around noon. Follow up: D/c to [facility] bed.
--- NOTE | 2017-02-28 10:22 | NUR ---
PT HX LAP CHOLECYSTECTOMY, HIATAL HERNIA, HYPERCHOLESTEREMIA, HAD A R) TOTAL KNEE ON 02/18. WAS DISMISSED AND RETURNED WITH ABDOMINAL PAIN. HAD SEALED DIVERTIC PERFORATION. HAD EXPLORATORY LAPROSCOPY WITH COLOSTOMY PLACEMENT. INCISIONS TO R KNEE, INTACT. LAP SITES X4 TO ABDOMEN, INCISIONS INTACT. OSCAR DRAIN WAS PULLED ON 02/27. [facility] RN HAVE BEEN WORKING WITH PT ON OSTOMY CARES, FLOOR RNs HAVE REINFORCED. PT IS CURRENTLY NOT PROVIDING CARES INDEPENDENTLY. PT/OT WORKING WITH. AMBULATES WITH SBA, WALKER. SHOWERED THIS AM WITH THERAPY. DOUBLE LUMEN PICC TO [facility]. CONTINUES ON IV ABX THROUGH 03/07. CDIFF WAS NEGATIVE. PT HAS BEEN TAKING 1 TAB NORCO FOR PAIN. ANTICIPATE GIVING PRIOR TO TRANSFER.
--- NOTE | 2017-02-28 12:03 | NUR ---
Discharged to [facility] Swingbed today, provider called Dr Begum to accept, I faxed orders, friend came and got pt to transport, nurse will call report. Will finish IV antibiotics, get PT/OT, and ostomy teaching.
--- NOTE | 2017-02-28 15:02 | NUR ---
NURSE TO NURSE REPORT CALLED TO MICHELLE AT [facility] AT 1120
--- NOTE | 2017-02-28 15:02 | NUR ---
I HAVE REVIEWED AND AGREE WITH CHARTING COMPLETED BY [facility] STUDENT JAYY MCKNIGHT FROM [phone] LUIS ENRIQUE CORTEZ
== END 2017-02-28 11:10 | disposition swing bed (61) | DRG 329 ==
LOC: GMSU 06:23
PROVIDERS: Physician Assistant; Surgery; ADMIT Surgery
DX: K57.20 Diverticulitis of large intestine with perforation and abscess without bleeding (principal); K27.5 Chronic or unspecified peptic ulcer, site unspecified, with perforation; I47.2 Ventricular tachycardia; K66.8 Other specified disorders of peritoneum; I97.89 Other postprocedural complications and disorders of the circulatory system, not elsewhere classified; K59.00 Constipation, unspecified; Z96.651 Presence of right artificial knee joint; E78.00 Pure hypercholesterolemia, unspecified; M19.90 Unspecified osteoarthritis, unspecified site
CPT/HCPCS: C1751; C9113; J1170; J1335; J1650; J2001; J2405; J3010; J3480; J7030; J7050; P9045; Q9968